=== PATIENT | male | born 1995 | race African-American/Black ===

== ENCOUNTER 2017-04-26 16:56 | Emergency (ER) | payer OTHER ==
[~2017-04-26] VITALS: Ht 175.3 cm; Wt 81.5 kg
[2017-04-26 16:56] VITALS: BP 146/80
[2017-04-26] MEDS ORDERED: NAPROXEN 250 MG TAB PO ONE (17:45)
[2017-04-26] MEDS ORDERED: NAPR500T PO ×2 (17:49→18:02)
== END 2017-04-26 18:08 | disposition home or self-care (01) ==
LOC: M ED 16:56
DX: S56.812A Strain of other muscles, fascia and tendons at forearm level, left arm, initial encounter (principal); X50.9XXA Other and unspecified overexertion or strenuous movements or postures, initial encounter; Y92.39 Other specified sports and athletic area as the place of occurrence of the external cause; Y93.B3 Activity, free weights; Y99.8 Other external cause status